=== PATIENT | male | born 1975 | race American Indian/Alaskan Native ===

== ENCOUNTER 2017-02-25 00:39 | Emergency (ER) | payer BC ==
[2017-02-25] MEDS ORDERED: TORADOL ONE (00:58)
[2017-02-25] MEDS: TORADOL IM ONE (01:11)
[2017-02-25 01:37] LABS: Basophils % (Auto) 0.2 % (0.0-1.8); Eosinophils % (Auto) 1.5 % (0.0-4.3); Hematocrit 46.5 % (35.5-45.6); Hemoglobin 15.7 gm/dl (11.8-15.2); Mean Corpuscular HGB Conc 34 % (32-34); Mean Corpuscular Hemoglobin 30 pg (28-32); Mean Corpuscular Volume 88 fl (84-94); Platelet Count 189 K/mm3 (140-440); Red Blood Count 5.28 M/mm3 (3.65-5.03); White Blood Count 9.8 K/mm3 (4.5-11.0)
[2017-02-25 02:02] LABS: Alanine Aminotransferase 21 units/L (7-56); Albumin 4.3 g/dL (3.9-5); Albumin/Globulin Ratio 1.4 %; Alkaline Phosphatase 53 units/L (35-129); Anion Gap 18 mmol/L; Blood Urea Nitrogen 10 mg/dL (9-20); Calcium 9.3 mg/dL (8.4-10.2); Carbon Dioxide 25 mmol/L (22-30); Chloride 100.4 mmol/L (98-107); Glucose 103 mg/dL (75-100); Lipase 28 units/L (13-60); Potassium 3.1 mmol/L (3.6-5.0); Sodium 140 mmol/L (137-145); Total Protein 7.3 g/dL (6.3-8.2)
--- NOTE | 2017-02-25 02:21 | Cat Scan Report ---
FINAL REPORT PROCEDURE: CT ABDOMEN PELVIS WO CON TECHNIQUE: Computerized axial tomography of the abdomen and pelvis was performed without intravenous contrast. This study is performed without intravascular contrast material and its sensitivity for abdominal and pelvic pathology, including neoplasms, inflammation, abscess, free fluid, thrombosis, arterial dissection and infarction, is reduced compared with a contrast enhanced study. HISTORY: Difficulty urination, Rt back/flank pain COMPARISON: 12/04/2011 FINDINGS: Visualized lower thorax: No significant abnormality. Liver: Normal size and attenuation. Spleen: Normal size and attenuation. Gallbladder and biliary system: Normal. Pancreas: Normal. Adrenals: Normal. Kidneys: There are bilateral kidney stones. There is moderate right hydronephrosis and hydroureter. There is a 3 millimeter stone at the right ureterovesical junction. There is a 1 centimeters cyst the midpole of the left kidney. GI tract: There is no bowel obstruction, colitis or enteritis. The appendix is normal.. Lymph nodes and mesentery: Normal. Vasculature: Normal. Bladder: Normal. Reproductive organs: Normal. Peritoneum: No free fluid. Musculoskeletal structures: No significant abnormality. Other: None. IMPRESSION: There is bilateral nephrolithiasis.. There is moderate right hydronephrosis and hydroureter. There is a 3 millimeter stone at the right ureterovesical junction.
[2017-02-25] MEDS ORDERED: TORADOL IV ONE (03:52)
[2017-02-25] MEDS ORDERED: DILAUDID IV PRN (04:09)
[2017-02-25 04:34] LABS: Bilirubin,Urine NEG (Negative); Blood,Urine NEG (Negative); Ketones,Urine NEG (Negative); Leukocyte Esterase,Urine NEG (Negative); Mucus,Urine 2+ /HPF; Nitrite,Urine NEG (Negative); Urobilinogen,Urine < 2.0 mg/dL (<2.0)
[2017-02-25] MEDS: ZOFRAN IV ONE (04:37)
[2017-02-25] MEDS: DILAUDID IV ONE (04:37)
[2017-02-25] MEDS: NACL 0.9% 1000 ML 1,000 ML IV ONE (04:37)
--- NOTE | 2017-02-25 04:38 | Emergency Department Report ---
ED General Adult HPI - General Chief complaint: Abdominal Pain Stated complaint: POSS KIDNEY STONES Time Seen by Provider: 02/25/17 04:36 Source: patient, RN notes reviewed Mode of arrival: Ambulatory Limitations: No Limitations - History of Present Illness Initial comments: This is a 41-year-old male. He is previously unknown to me. He has a past medical history of nephrolithiasis. Last episode of kidney stone pain was in 2012. No history of lithotripsy. No history of stent. Presents to the ER with his typical episode of renal colic. He presents with pain which is in the right back which radiates around to the right flank. There is mild nausea and vomiting. He occasionally describes blood-tinged emesis. However there is no gross hemoptysis, there is no bright red blood per rectum. He denies irritative or obstructive urinary symptoms. He denies chest pain and soreness of breath. His pain is improved with hydromorphone and Toradol. A noncontrast CT scan of the abdomen and pelvis performed in the ER demonstrated a right hydronephrosis and hydroureter, with a 3 mm stone noted at the right ureterovesical junction. The patient reported his pain initially as a "55." He now reports that it is a "7." -: Gradual Location: back, abdomen Severity scale (0 -10): 0 Consistency: constant Improves with: medication Associated Symptoms: nausea/vomiting. denies: confusion, chest pain, cough, diaphoresis, fever/chills, headaches, loss of appetite, malaise, shortness of breath, syncope, weakness - Related Data Previous Rx's Medication Instructions Recorded Last Taken Type Ketorolac [Toradol] 10 mg PO Q6H PRN #20 tablet 02/25/17 Unknown Rx Ondansetron [Zofran Odt] 4 mg PO QID PRN #20 tab.rapdis 02/25/17 Unknown Rx Tamsulosin [Flomax] 0.4 mg PO QDAY #30 cap 02/25/17 Unknown Rx oxyCODONE [Roxicodone] 5 mg PO Q6HR PRN #15 tablet 02/25/17 Unknown Rx Allergies Allergy/AdvReac Type Severity Reaction Status Date / Time No Known Allergies Allergy Verified 02/25/17 01:00 ED Review of Systems ROS: Stated complaint: POSS KIDNEY STONES Other details as noted in HPI Constitutional: denies: fever, malaise Eyes: denies: vision change ENT: denies: epistaxis Respiratory: denies: cough Cardiovascular: denies: chest pain Gastrointestinal: abdominal pain, nausea Genitourinary: as per HPI. denies: testicular pain Musculoskeletal: back pain Skin: denies: lesions Neurological: denies: weakness Psychiatric: denies: anxiety ED Past Medical Hx - Past Medical History Previous Medical History?: No - Surgical History Past Surgical History?: Yes Additional Surgical History: Left Knee - Social History Smoking Status: Never Smoker Substance Use Type: Alcohol - Medications Home Medications: Home Medications Medication Instructions Recorded Confirmed Last Taken Type Ketorolac [Toradol] 10 mg PO Q6H PRN #20 tablet 02/25/17 Unknown Rx Ondansetron [Zofran Odt] 4 mg PO QID PRN #20 tab.rapdis 02/25/17 Unknown Rx Tamsulosin [Flomax] 0.4 mg PO QDAY #30 cap 02/25/17 Unknown Rx oxyCODONE [Roxicodone] 5 mg PO Q6HR PRN #15 tablet 02/25/17 Unknown Rx ED Physical Exam - General Limitations: No Limitations General appearance: alert, in no apparent distress - Head Head exam: Present: atraumatic, normocephalic - Eye Eye exam: Present: normal appearance, EOMI. Absent: nystagmus - ENT ENT exam: Present: normal exam, normal orophraynx, mucous membranes moist, normal external ear exam - Neck Neck exam: Present: normal inspection, full ROM. Absent: tenderness - Respiratory Respiratory exam: Present: normal lung sounds bilaterally. Absent: respiratory distress, wheezes, rales, rhonchi, stridor, chest wall tenderness, accessory muscle use, decreased breath sounds, prolonged expiratory - Cardiovascular Cardiovascular Exam: Present: regular rate, normal rhythm, normal heart sounds. Absent: bradycardia, tachycardia, irregular rhythm, systolic murmur, diastolic murmur, rubs, gallop - GI/Abdominal GI/Abdominal exam: Present: soft, normal bowel sounds. Absent: distended, tenderness, guarding, rebound, rigid, pulsatile mass - Rectal Rectal exam: Present: deferred - exam: Present: normal inspection. Absent: testicular tenderness External exam: Present: normal external exam, other (there is no testicular tenderness. There is normal, mesenteric reflex bilaterally. There is normal testicular lie bilaterally. During the testicular examination, I am escorted by nurse Tara Bahena) - Extremities Exam Extremities exam: Present: normal inspection, full ROM. Absent: tenderness - Back Exam Back exam: Present: normal inspection, full ROM, paraspinal tenderness. Absent : tenderness, CVA tenderness (R), CVA tenderness (L), muscle spasm - Neurological Exam Neurological exam: Present: alert, oriented X3, normal gait, other (Extraocular movements intact. Tongue midline. No facial droop. Facial sensation intact to light touch in the V1, V2, V3 distribution bilaterally. 5 and 5 strength in 4 extremities.. Sensation is intact to light touch in 4 extremities.). Absent : motor sensory deficit - Psychiatric Psychiatric exam: Present: normal affect, normal mood - Skin Skin exam: Present: warm, dry, intact, normal color. Absent: rash ED Course Vital Signs 02/25/17 02/25/17 02/25/17 00:50 03:22 03:31 Temperature 98.2 F Pulse Rate 89 Respiratory 22 Rate Blood Pressure 142/94 142/94 Blood Pressure 158/100 [Right] O2 Sat by Pulse 100 97 Oximetry 02/25/17 02/25/17 02/25/17 03:45 04:00 04:30 Temperature Pulse Rate Respiratory 18 Rate Blood Pressure 144/92 137/92 Blood Pressure [Right] O2 Sat by Pulse 98 98 Oximetry 02/25/17 05:00 Temperature Pulse Rate Respiratory Rate Blood Pressure 142/96 Blood Pressure [Right] O2 Sat by Pulse Oximetry - Reevaluation(s) Reevaluation #1: 02/25/17 05:09 Differential diagnosis: Renal colic Assessment and plan: 41-year-old male with typical renal colic. He is afebrile with reassuring vital signs. Laboratory studies unremarkable. Physical exam unremarkable. Noncontrast CT scan demonstrates a right sided stone. Patient tolerating liquid feeds, urinalysis not consistent with urinary tract infection , patient reports pain feels improved. Patient will be discharged with pain medication, nausea medication, tamsulosin, instructions to follow up with outpatient urology. Reevaluation #2: 02/25/17 05:58 reassessed. Pain much improved. Patient indicates he is ready for discharge. He is going to follow up with outpatient urology. ED Medical Decision Making - Lab Data Result diagrams: 02/25/17 01:02 02/25/17 01:02 Vital Signs 02/25/17 02/25/17 02/25/17 00:50 03:22 03:31 Temperature 98.2 F Pulse Rate 89 Respiratory 22 Rate Blood Pressure 142/94 142/94 Blood Pressure 158/100 [Right] O2 Sat by Pulse 100 97 Oximetry 02/25/17 03:45 Temperature Pulse Rate Respiratory 18 Rate Blood Pressure Blood Pressure [Right] O2 Sat by Pulse Oximetry Lab Results 02/25/17 02/25/17 02/25/17 Range/Units 01:02 01:02 03:27 WBC 9.8 (4.5-11.0) K/mm3 RBC 5.28 H (3.65-5.03) M/mm3 Hgb 15.7 H (11.8-15.2) gm/dl Hct 46.5 H (35.5-45.6) % MCV 88 (84-94) fl MCH 30 (28-32) pg MCHC 34 (32-34) % RDW 13.0 L (13.2-15.2) % Plt Count 189 (140-440) K/mm3 Lymph % (Auto) 18.8 (13.4-35.0) % Toole % (Auto) 5.8 (0.0-7.3) % Eos % (Auto) 1.5 (0.0-4.3) % Baso % (Auto) 0.2 (0.0-1.8) % Lymph # 1.8 (1.2-5.4) K/mm3 Toole # 0.6 (0.0-0.8) K/mm3 Eos # 0.1 (0.0-0.4) K/mm3 Baso # 0.0 (0.0-0.1) K/mm3 Seg Neutrophils % 73.7 H (40.0-70.0) % Seg Neutrophils # 7.2 (1.8-7.7) K/mm3 Sodium 140 (137-145) mmol/L Potassium 3.1 L (3.6-5.0) mmol/L Chloride 100.4 (98-107) mmol/L Carbon Dioxide 25 (22-30) mmol/L Anion Gap 18 mmol/L BUN 10 (9-20) mg/dL Creatinine 1.0 (0.8-1.5) mg/dL Estimated GFR > 60 ml/min BUN/Creatinine Ratio 10.00 % Glucose 103 H (75-100) mg/dL Calcium 9.3 (8.4-10.2) mg/dL Total Bilirubin 0.30 (0.1-1.2) mg/dL AST 20 (5-40) units/L ALT 21 (7-56) units/L Alkaline Phosphatase 53 (35-129) units/L Total Protein 7.3 (6.3-8.2) g/dL Albumin 4.3 (3.9-5) g/dL Albumin/Globulin Ratio 1.4 % Lipase 28 (13-60) units/L Urine Color Yellow (Yellow) Urine Turbidity Clear (Clear) Urine pH 7.0 (5.0-7.0) Ur Specific Steward 1.021 (1.003-1.030) Urine Protein 30 mg/dl (Negative) mg/dL Urine Glucose (UA) Neg (Negative) mg/dL Urine Ketones Neg (Negative) mg/dL Urine Blood Neg (Negative) Urine Nitrite Neg (Negative) Urine Bilirubin Neg (Negative) Urine Urobilinogen < 2.0 (<2.0) mg/dL Ur Leukocyte Esterase Neg (Negative) Urine WBC (Auto) 10.0 H (0.0-6.0) /HPF Urine RBC (Auto) 2.0 (0.0-6.0) /HPF U Epithel Cells (Auto) < 1.0 (0-13.0) /HPF Hyaline Casts 1 /LPF Urine Mucus 2+ /HPF - Radiology Data Radiology results: report reviewed, image reviewed Noncontrast CT scan of the abdomen and pelvis demonstrates bilateral nephrolithiasis, right hydronephrosis, right hydroureter, 3 mm stone at the right ureterovesical junction. 1 cm cyst on the mid pole of the left kidney. The appendix is normal. Critical care attestation.: If time is entered above; I have spent that time in minutes in the direct care of this critically ill patient, excluding procedure time. ED Disposition Clinical Impression: Renal colic on right side Disposition: DISCHARGED TO HOME OR SELFCARE Is pt being admited?: No Does the pt Need Aspirin: No Condition: Stable Instructions: Renal Colic (ED) Additional Instructions: Physical exam, CAT scan, laboratory studies suggested kidney stone in the right hand side. Follow-up with a listed urology specialist within the next week to [address] Feliciano is a local urology specialist. Avoid consumption of alcohol. If taken oxycodone pain medication, do not drive , consume alcohol, or make important decisions. Return to the ER right away with new pain, worsened pain, migration of pain, fevers or chills, nausea or vomiting, inability to tolerate liquid feeds. Prescriptions: Ketorolac [Toradol] 10 mg PO Q6H PRN #20 tablet PRN Reason: Pain Ondansetron [Zofran Odt] 4 mg PO QID PRN #20 tab.rapdis PRN Reason: Nausea oxyCODONE [Roxicodone] 5 mg PO Q6HR PRN #15 tablet PRN Reason: Pain Tamsulosin [Flomax] 0.4 mg PO QDAY #30 cap Referrals: CARRIE MARTINEZ MD [Primary Care Provider] - 3-5 Days SYLVAIN FELICIANO MD [Staff Physician] - 3-5 Days
[2017-02-25 05:22] VITALS: BP 142/96
[2017-02-25] MEDS: K-DUR PO ONE (05:38)
[2017-02-25] MEDS: FLOMAX PO ONE (05:47)
== END 2017-02-25 06:19 | disposition home or self-care (01) ==
LOC: ED 00:39
DX: N23 Unspecified renal colic (principal)
CPT/HCPCS: 36415; 74176; 80053; 81001; 83690; 85025; 96361; 96372; 96374; 96375; 99284; J1170; J1885; J2405; J7030